=== PATIENT | female | born 1975 | race African-American/Black ===

== ENCOUNTER → 2018-07-27 | Day surgery (SDC) | payer BC ==
--- NOTE | 2018-07-26 16:17 | Diagnostic Imaging Report ---
Frontal and lateral views of the chest. HISTORY: Ureteral stricture, preadmission, cystostomy with urethral dilation COMPARISON: None available DISCUSSION: Lungs: The lungs are well inflated. No evidence of a consolidative pneumonia or pulmonary alveolar edema. Pleura: No pleural effusion or pneumothorax. Heart and mediastinum: The cardiomediastinal silhouette appears unremarkable. Bones: No acute osseous lesion. IMPRESSION: No acute radiographic abnormality. Signed by: Dr. Jacky Jo D.O., M.M.M. on 07/26/2018 4:14 PM
[~2018-07-27] MED LIST: ATARAX PO; ATIVAN0.5 MG PO; BACTROBAN15 G1; BENADRYL25 M1 PO; BENTYL10 MG/1 ML PO; BIOTIN1 MG PO; CEFOXITIN SOD 1 GM VIAL ONE; CYMBALTA30 MG PO; DEXAMETHASONE SOD PHOS INJ 4 MG/ML VIAL ONE; DIPHENHYDRAMINE HCL INJ 50 MG/ML VIAL ONE; ELAVIL PO; FENTANYL CITRATE/PF 100MCG/2 ML INJ ONE; IBUPROFEN200 MG PO; INDERAL LA60 MG PO; IOPAMIDOL 300MG/ML 50ML INFUS..BTL IV ONE; KETAMINE HCL INJ 50 MG/ML 10 ML VIAL ONE; LIDOCAINE HCL 2% LOCAL INJ 5 ML SDV VIAL INJ ONE; LYRICA50 MG PO; MACROBID 100 M100 MG PO; METOCLOPRAMIDE HCL 10 MG/2ML VIAL ONE; MIDAZOLAM HCL 2 MG/2 ML VIAL ONE; ONDANSETRON HCL INJ 2 MG/ML VIAL ONE; PAROXETINE HCL20 MG PO; PHENERGAN PO; PROMETHAZINE12.5 M1 PO; PROPOFOL IV EMULSION 10 MG/ML 20 ML VIAL ONE; SEVOFLURANE INHAL SOLN 250 ML PEN BTL ONE; STADOL; TINDAMAX500 MG PO; TOPAMAX25 MG PO; VALTREX500 MG PO; ZOFRAN4 MG PO; ZOMIG5 M1
[2018-07-27 08:36] LABS: BASOPHILS % 0.6 % (0.0-1.0); EOSINOPHILS # (AUTO) 0.2 (0.0-0.4); EOSINOPHILS % 4.9 % (0.0-6.0); HEMOGLOBIN 14.3 g/dL (12.0-16.0); LYMPHOCYTES # (AUTO) 1.7 (1.0-3.2); LYMPHOCYTES % 47.4 % (18.0-39.1); MEAN CORPUSCULAR HEMOGLOBIN 35.2 pg (28-32); MEAN CORPUSCULAR HGB CONC 33.3 g/dL (31-35); MEAN CORPUSCULAR VOLUME 105.9 fL (81-99); MONOCYTES # (AUTO) 0.2 (0.2-0.8); MONOCYTES % 6.6 % (4.4-11.3); NEUTROPHILS # (AUTO) 1.4 (2.1-6.9); NEUTROPHILS % 40.2 % (38.7-80.0); PLATELET COUNT 223 x10e3/uL (140-360); RED BLOOD COUNT 4.06 x10e6/uL (3.6-5.1); RED CELL DISTRIBUTION WIDTH 12.9 % (11.7-14.4)
[2018-07-27 08:48] LABS: INR 1.02; PROTHROMBIN TIME 12.6 seconds (11.9-14.5)
[2018-07-27 08:54] LABS: ANION GAP 12.1 mmol/L (8-16); BLOOD UREA NITROGEN 6 mg/dL (7-26); BUN/CREATININE RATIO 6 (6-25); CALCIUM 9.4 mg/dL (8.4-10.2); CARBON DIOXIDE 25 mmol/L (22-29); CHLORIDE 109 mmol/L (98-107); CREATININE, SERUM 0.94 mg/dL (0.57-1.11); EST GLOMERULAR FILTRATION RATE > 60 ML/MIN (60-); GLUCOSE 86 mg/dL (74-118); POTASSIUM 4.1 mmol/L (3.5-5.1); SODIUM 142 mmol/L (136-145)
--- NOTE | 2018-07-27 11:52 | Operative Report ---
DATE OF PROCEDURE: July 27, 2018 PREOPERATIVE DIAGNOSIS: Urethral stricture. POSTOPERATIVE DIAGNOSIS: Urethral stricture. OPERATIONS PERFORMED: Cystoscopy and dilation of urethral stricture. ANESTHESIA: General. INDICATIONS: This patient is a 43-year-old black female with a long history of urethral stricture disease. She also has a T-cell lymphoma. The patient saw me because she was having severe troubles initiating her urinary stream and problems emptying her bladder. For further details, please refer to the history and physical. Procedure was done in the following fashion. DESCRIPTION OF PROCEDURE: The patient was taken to the operating room and placed under general anesthesia, dressed, and draped with Hibiclens in lithotomy position in usual fashion. The urethral meatus and urethra were initially so tight that it would not accept the 22-English Olympus cystoscope; therefore, I had to dilate from 16-English to 32-English with female sounds. The dilation went very slowly because the stricture was tight. Once this was accomplished, I then inserted a 22-English Olympus cystoscope with the 30-degree oblique lens. Clear efflux was seen from both ureteral orifices. No bladder tumors or bladder stones were identified. There was very mild bladder trabeculation. The bladder was emptied and cystoscope withdrawn. The patient tolerated the procedure well and left the operating room in good condition. PLAN: My plan at this time is to send her home on Macrobid 1 p.o. twice daily, #20. She will have return appointment to see me again in 2 weeks. Job#: [id number] MAXI
[2018-07-27 12:20] VITALS: BP 101/75
== END | disposition home or self-care (01) ==
LOC: OR 07:18
PROVIDERS: ATTEND Urology
DX: N35.028 Other post-traumatic urethral stricture, female (principal); N32.89 Other specified disorders of bladder; C84.A0 Cutaneous T-cell lymphoma, unspecified, unspecified site; K64.4 Residual hemorrhoidal skin tags; G13.0 Paraneoplastic neuromyopathy and neuropathy; G43.909 Migraine, unspecified, not intractable, without status migrainosus; M79.7 Fibromyalgia; R00.1 Bradycardia, unspecified; K21.9 Gastro-esophageal reflux disease without esophagitis; F32.9 Major depressive disorder, single episode, unspecified; F41.9 Anxiety disorder, unspecified; F17.210 Nicotine dependence, cigarettes, uncomplicated; Z01.810 Encounter for preprocedural cardiovascular examination; Z01.818 Encounter for other preprocedural examination; Z88.6 Allergy status to analgesic agent; Z88.8 Allergy status to other drugs, medicaments and biological substances; Z68.38 Body mass index [BMI] 38.0-38.9, adult
CPT/HCPCS: 36415; 52281; 71046; 80048; 85025; 85610; 85730; 93005; J0694; J1100; J1200; J2001; J2250; J2405; J2765

== ENCOUNTER 2018-07-28 10:25 | Emergency (ER) | payer BC ==
[~2018-07-28] VITALS: Ht 170.2 cm; Wt 81.2 kg
[~2018-07-28 10:25] MED LIST changes: -CEFOXITIN SOD 1 GM VIAL ONE; -DEXAMETHASONE SOD PHOS INJ 4 MG/ML VIAL ONE; -DIPHENHYDRAMINE HCL INJ 50 MG/ML VIAL ONE; -FENTANYL CITRATE/PF 100MCG/2 ML INJ ONE; -IOPAMIDOL 300MG/ML 50ML INFUS..BTL IV ONE; -KETAMINE HCL INJ 50 MG/ML 10 ML VIAL ONE; -LIDOCAINE HCL 2% LOCAL INJ 5 ML SDV VIAL INJ ONE; -METOCLOPRAMIDE HCL 10 MG/2ML VIAL ONE; -MIDAZOLAM HCL 2 MG/2 ML VIAL ONE; -ONDANSETRON HCL INJ 2 MG/ML VIAL ONE; -PROMETHAZINE12.5 M1 PO; -PROPOFOL IV EMULSION 10 MG/ML 20 ML VIAL ONE; -SEVOFLURANE INHAL SOLN 250 ML PEN BTL ONE
[2018-07-28] MEDS ORDERED: ONDANSETRON HCL INJ 2 MG/ML VIAL IV STA (11:10)
[2018-07-28] MEDS ORDERED: MORPHINE SULFATE INJ 4 MG/ML INJ IV NR (11:30)
[2018-07-28 11:34] LABS: BASOPHILS % 0.4 % (0.0-1.0); EOSINOPHILS # (AUTO) 0.1 (0.0-0.4); EOSINOPHILS % 2.3 % (0.0-6.0); HEMOGLOBIN 12.3 g/dL (12.0-16.0); LYMPHOCYTES # (AUTO) 2.6 (1.0-3.2); MEAN CORPUSCULAR HEMOGLOBIN 35.5 pg (28-32); MEAN CORPUSCULAR HGB CONC 33.2 g/dL (31-35); MEAN CORPUSCULAR VOLUME 106.9 fL (81-99); MONOCYTES # (AUTO) 0.4 (0.2-0.8); MONOCYTES % 6.7 % (4.4-11.3); NEUTROPHILS # (AUTO) 2.2 (2.1-6.9); NEUTROPHILS % 41.4 % (38.7-80.0); PLATELET COUNT 196 x10e3/uL (140-360); RED BLOOD COUNT 3.46 x10e6/uL (3.6-5.1)
[2018-07-28 11:45] LABS: INR 1.08; PROTHROMBIN TIME 13.2 seconds (11.9-14.5)
[2018-07-28 11:46] LABS: PARTIAL THROMBOPLASTIN TIME 25.7 seconds (23.8-35.5)
[2018-07-28 11:52] LABS: ANION GAP 9.3 mmol/L (8-16); BLOOD UREA NITROGEN 6 mg/dL (7-26); BUN/CREATININE RATIO 6 (6-25); CALCIUM 8.7 mg/dL (8.4-10.2); CARBON DIOXIDE 24 mmol/L (22-29); CHLORIDE 110 mmol/L (98-107); CREATININE, SERUM 1.06 mg/dL (0.57-1.11); EST GLOMERULAR FILTRATION RATE > 60 ML/MIN (60-); GLUCOSE 79 mg/dL (74-118); POTASSIUM 3.3 mmol/L (3.5-5.1); SODIUM 140 mmol/L (136-145)
[2018-07-28] MEDS ORDERED: LIDOCAINE JELLY 2% 10ML URO-JET TOP ONE ×2 (12:45→14:00)
[2018-07-28] MEDS ORDERED: POTASSIUM CHLORIDE 20 MEQ TAB CR PO STA (13:23)
[2018-07-28] MEDS ORDERED: FENTANYL CITRATE/PF 100MCG/2 ML INJ IV ONE (14:15)
[2018-07-28] MEDS ORDERED: PROMETHAZINE 12.5MG/ NACL 0.9% 12.5 MG/50 ML BAG IV ONE (14:45)
[2018-07-28 15:32] LABS: BILIRUBIN,URINE NEGATIVE (NEGATIVE); CLARITY,URINE CLEAR (CLEAR); COLOR,URINE YELLOW (YELLOW); KETONES,URINE NEGATIVE (NEGATIVE); LEUKOCYTE ESTERASE ,URINE 1+ (NEGATIVE); NITRITE,URINE NEGATIVE (NEGATIVE); PROTEIN,URINE DIPSTICK NEGATIVE (NEGATIVE); URINE UROBILINOGEN 0.2 mg/dL (0.2 - 1)
[2018-07-28 15:47] LABS: BACTERIA,URINE FEW /HPF; EPITHELIAL CELLS,URINE FEW /LPF; RBC,URINE 21-50 /HPF (0-5)
[2018-07-28] MEDS ORDERED: PROMETHAZINE12.5 M1 PO (16:29)
--- OUTSIDE RECORDS SUMMARY | 2018-08-23 06:46 | XMS REPORT | Clinical Summary ---
Author Author [employer] Organization [employer] Address Unknown Phone Unavailable Care Team Providers Care Reservations Manager Name Role Phone Joi Almodovar PCP Allergies Active Allergy Reactions Severity Noted Date Comments Aspirin 08/17/2016 Hydromorphone (Bulk) Hives 04/12/2017 Current Medications Prescription Sig. Disp. Refills Start End Date Status Date diphenhydrAMINE Take 25 mg by mouth Active (BENADRYL) 25 mg tablet nightly as needed for sleep. ibuprofen (ADVIL,MOTRIN) Take 200 mg by mouth Active 200 MG tablet every 6 (six) hours as needed for mild pain. biotin 1 mg capsule Take by mouth. Active ascorbic acid, vitamin C, Take 1,000 mg by mouth Active (vitamin C) 1000 MG daily. tablet propranolol (INDERAL) 20 Take 20 mg by mouth 4 Active MG tablet (four) times a day. topiramate (TOPAMAX) 100 Take 100 mg by mouth 2 Active MG tablet (two) times a day. amitriptyline (ELAVIL) 25 Take 25 mg by mouth 2 Active MG tablet (two) times a day. PARoxetine mesylate 7.5 Take 7.5 mg by mouth Active mg capsule daily. LORAZepam (ATIVAN) 1 MG Take 1 mg by mouth 2 Active tablet (two) times a day. valACYclovir (VALTREX) Take 1,000 mg by mouth Active 1000 MG tablet daily. promethazine (PHENERGAN) Take 25 mg by mouth every Active 25 MG tablet 6 (six) hours as needed for nausea or vomiting. butorphanol (STADOL) 10 1 spray into each nostril Active mg/mL nasal spray every 6 (six) hours as needed for moderate pain. dicyclomine (BENTYL) 20 Take 20 mg by mouth every Active mg tablet 6 (six) hours. ketoprofen 5% and Apply topically as Active lidocaine 5% 5%-5% cream needed. ondansetron (ZOFRAN) 4 MG 12/26/19 Active tablet 18 hydrOXYzine (ATARAX) 50 11/15/20 Active MG tablet 17 mupirocin (BACTROBAN) 2 % 12/27/19 Active ointment 18 tinidazole (TINDAMAX) 500 12/27/19 Active MG tablet 18 ZOMIG 5 mg nasal solution 12/27/19 Active 18 pregabalin (LYRICA) 50 MG Take 50 mg by mouth 3 Active capsule (three) times a day. DULoxetine (CYMBALTA) 30 Take 30 mg by mouth Active MG capsule daily. multivitamin with Take 1 tablet by mouth 08/21/20 Discontin minerals tablet daily. 18 ued VITAMIN E, DL,TOCOPHERYL Take by mouth daily. 01/23/20 Discontin ACET, (VITAMIN E, DL, 18 ued ACETATE,) 400 unit capsule cyanocobalamin (vitamin Take 100 mcg by mouth 08/21/20 Discontin B-12) 100 MCG tablet daily. 18 ued polycarbophil (FIBER, Take 625 mg by mouth 01/23/20 Discontin CALCIUM POLYCARBOPHIL,) daily. 18 ued 625 mg tablet black cohosh 20 mg tablet Take by mouth. 01/11/20 Discontin 18 ued sodium,potassium,mag Please use as directed 2 Bottle 0 08/17/20 Discontin sulfates (SUPREP BOWEL 16 18 ued PREP KIT) 17.5-3.13-1.6 gram recon solnIndications: Other constipation keTOROlac (TORadol) 10 mg Take 10 mg by mouth every 01/23/20 Discontin tablet 6 (six) hours as needed 18 ued for moderate pain. sodium,potassium,mag Please use as directed 354 mL 0 01/11/20 Discontin sulfates (SUPREP BOWEL 18 18 ued PREP KIT) 17.5-3.13-1.6 gram recon soln traMADol (ULTRAM) 50 mg Take 1 tablet (50 mg 20 tablet 0 01/27/20 tablet total) by mouth every 6 18 18 (six) hours as needed for moderate pain for up to 5 days. Active Problems Problem Noted Date Bladder neck contracture 08/21/2018 Lower urinary tract symptoms 08/21/2018 Diarrhea 01/04/2018 Nausea and vomiting 01/04/2018 Abdominal pain 01/04/2018 Dehydration 01/04/2018 Constipation 08/17/2016 Dyspepsia 08/17/2016 Encounters Date Type Specialty Care Team Description 08/22/2018 Yue Villalobos MD Abnormal mammogram Orders (Primary Dx) 08/21/2018 Office Visit Urology Leonora Matamoros MD Lower urinary tract symptoms (Primary Dx); Bladder neck contracture 08/21/2018 Hospital Radiology Yue Cardona MD Screening breast Encounter examination 08/21/2018 Transcribe Yue Graves MD Screening breast Orders examination (Primary Dx) 02/12/2018 Office Visit General Surgery Eleni Browning MD Calculus of gallbladder with chronic cholecystitis without obstruction (Primary Dx) 01/25/2018 [facility] General Surgery Eleni Browning MD Preop testing; Encounter Calculus of gallbladder with chronic cholecystitis without obstruction 01/25/2018 Telephone Urology Jeannette Bonilla MA 01/25/2018 Procedure Pass General Surgery 01/25/2018 Surgery General Surgery Eleni Browning MD Laparoscopic Cholecystectomy With Cholangiography 01/24/2018 Anesthesia General Surgery Amos Jiménez MD 01/22/2018 Pre-Admit Pre-Admission Testing Eleni Browning MD Preop testing (Primary Testing Dx) Appointment 01/18/2018 Telephone General Surgery Luna Rivera RN 01/17/2018 Office Visit General Surgery Eleni Browning MD Calculus of gallbladder with chronic cholecystitis without obstruction (Primary Dx) 01/16/2018 Hospital Gastroenterology Jose Dodd MD Diarrhea; Encounter Abdominal pain; Dyspepsia 01/16/2018 Hospital Radiology Jose Dodd MD Abdominal pain, Encounter unspecified abdominal location; Intractable vomiting with nausea, unspecified vomiting type 01/16/2018 Orders Only Gastroenterology Jose Dodd MD Calculus of gallbladder without cholecystitis without obstruction (Primary Dx); Nausea and vomiting, intractability of vomiting not specified, unspecified vomiting type 01/16/2018 Anesthesia Gastroenterology Terry Burns Event MD 01/16/2018 Procedure Pass Gastroenterology 01/16/2018 Surgery Gastroenterology Jose Dodd MD ESOPHAGOGASTRODUODENOSCOP Y (EGD) with bx 01/11/2018 Office Visit Gastroenterology Jose Dodd MD Diarrhea, unspecified type (Primary Dx); Abdominal pain, unspecified abdominal location; Dyspepsia; Intractable vomiting with nausea, unspecified vomiting type; Dehydration 01/05/2018 Telephone Gastroenterology Maddy Blanchard MA 01/04/2018 Emergency Emergency Medicine Sanjeev France Lower abdominal pain (Primary Dx); Nausea and vomiting, intractability of vomiting not specified, unspecified vomiting type 01/04/2018 Office Visit Gastroenterology Jose Dodd MD Diarrhea, unspecified type (Primary Dx); Nausea and vomiting, intractability of vomiting not specified, unspecified vomiting type; Abdominal pain, unspecified abdominal location; Dehydration 08/17/2017 Hospital Radiology Yue Cardona MD Visit for screening Encounter mammogram 08/15/2017 Transcribe Access Yue Cardona MD Visit for screening Orders mammogram (Primary Dx) after 07/27/2017 Family History Medical History Relation Name Comments No Known Problems Brother Diabetes Father Hypertension Father Stomach cancer Father Bone cancer Paternal Grandfather Lung cancer Paternal Grandmother No Known Problems Sister Relation Name Status Comments Brother Alive Father Alive Maternal Grandfather Maternal Grandmother Mother Alive Paternal Grandfather Paternal Grandmother Sister Alive Social History Tobacco Use Types Packs/Day Years Used Date Former Smoker Cigarettes, Electronic 5 Cigarettes Smokeless Tobacco: Never Used Tobacco Cessation: Ready to Quit: Yes Comments: 5 cigg per day Alcohol Use Drinks/Week oz/Week Comments Yes 6 Cans of 3.6 per month beer Sex Assigned at Date Recorded Not on file Last Filed Vital Signs Vital Sign Reading Time Taken Blood Pressure 119/80 08/21/2018 2:26 PM CDT Pulse 81 08/21/2018 2:26 PM CDT Temperature 36.6 C (97.8 F) 08/21/2018 2:26 PM CDT Respiratory Rate 16 01/25/2018 2:23 PM SIFTER OPERATOR Oxygen Saturation 99% 01/25/2018 2:23 PM SIFTER OPERATOR Inhaled Oxygen - - Concentration Weight 85.5 kg (188 lb 9.6 oz) 08/21/2018 2:26 PM CDT Height 171.5 cm (5' 7.5") 08/21/2018 2:26 PM CDT Body Mass Index 29.1 08/21/2018 2:26 PM CDT Plan of Treatment Date Type Specialty Care Team Description 09/07/2018 Appointment Radiology Yue Cardona MD [address] [place] [address] 09/07/2018 Appointment Radiology Yue Cardona MD [address] [place], [place] [id number] Health Maintenance Due Date Last Done Comments CERVICAL CANCER SCREENING 1995 INFLUENZA VACCINE 06/20/2018 Procedures Procedure Name Priority Date/Time Associated Diagnosis Comments BLADDER SCAN Routine 08/21/2018 Bladder neck contracture Results for this 3:26 PM CDT Lower urinary tract procedure are in the symptoms results section. MAMMO SCREENING W CAD Routine 08/21/2018 Screening breast Results for this BILATERAL 12:24 PM CDT examination procedure are in the results section. SURGICAL PATHOLOGY Routine 01/25/2018 Results for this REQUEST 1:23 PM SIFTER OPERATOR procedure are in the results section. OH AN ELECTIVE Routine 01/25/2018 ENDOTRACHEAL AIRWAY 12:18 PM SIFTER OPERATOR Procedure Note - Ashly Voss, CHIEF SPECIALIST LEED - 01/25/2018 12:18 PM SIFTER OPERATOR Airway Date/Time: 01/25/2018 11:19 AM Performed by: ASHLY VOSS Authorized by: AMOS JIMÉNEZ Location: PACU Urgency: Elective Difficult Airway: No Resident/C RNA/AA: ASHLY VOSS Preoxygena dario with 100% O2: Yes C-spine Precaution s Maintained Throughout : Yes Mask Ventilatio n: Easy mask Final Airway Type: Endotrache al airway Final Endotrache al Airway: ETT Cuffed: Yes Technique Used: Direct laryngosco py Insertion Site: Oral Blade Type: Rita Laryngosco pe Blade/Vide olaryngosc ope Blade Size: 3 ETT Size (mm): 7.0 Cuff at minimum occlusion pressure: Yes Measured from: Lips ETT to Lips (cm): 22 Placement Verified by: CO2 detection, direct visualizat ion and equal breath sounds Laryngosco pic view: Grade I - full view of glottis FL CHOLANGIOGRAM Routine 01/25/2018 Results for this INTRAOPERATIVE 12:07 PM SIFTER OPERATOR procedure are in the results section. ECG PRE/POST OP Routine 01/22/2018 Preop testing Results for this 5:40 PM SIFTER OPERATOR procedure are in the results section. ZZESTIMATED GFR Routine 01/22/2018 Results for this 4:59 PM SIFTER OPERATOR procedure are in the results section. HCG QUALITATIVE, URINE Routine 01/22/2018 Preop testing Results for this SCREEN 4:59 PM SIFTER OPERATOR procedure are in the results section. COMPREHENSIVE METABOLIC Routine 01/22/2018 Preop testing Results for this PANEL 4:59 PM SIFTER OPERATOR procedure are in the results section. HC COMPLETE BLD COUNT Routine 01/22/2018 Preop testing Results for this W/AUTO DIFF 4:59 PM SIFTER OPERATOR procedure are in the results section. SURGICAL PATHOLOGY Routine 01/16/2018 Results for this REQUEST 10:28 AM SIFTER OPERATOR procedure are in the results section. COLONOSCOPY 01/16/2018 Diarrhea 10:00 AM SIFTER OPERATOR ESOPHAGOGASTRODUODENOSCOP 01/16/2018 Diarrhea Y (EGD) 10:00 AM SIFTER OPERATOR US ABDOMEN COMPLETE Routine 01/16/2018 Abdominal pain, Results for this 8:37 AM SIFTER OPERATOR unspecified abdominal procedure are in the location results section. Intractable vomiting with nausea, unspecified vomiting type CT ABDOMEN PELVIS W STAT 01/04/2018 Results for this CONTRAST 8:11 PM SIFTER OPERATOR procedure are in the results section. ZZESTIMATED GFR STAT 01/04/2018 Results for this 5:15 PM SIFTER OPERATOR procedure are in the results section. HC COMPLETE BLD COUNT STAT 01/04/2018 Results for this W/AUTO DIFF 5:15 PM SIFTER OPERATOR procedure are in the results section. LIPASE LEVEL STAT 01/04/2018 Results for this 5:15 PM SIFTER OPERATOR procedure are in the results section. COMPREHENSIVE METABOLIC STAT 01/04/2018 Results for this PANEL 5:15 PM SIFTER OPERATOR procedure are in the results section. HCG QUALITATIVE, URINE STAT 01/04/2018 Results for this SCREEN 4:52 PM SIFTER OPERATOR procedure are in the results section. URINALYSIS SCREEN AND STAT 01/04/2018 Results for this MICROSCOPY, WITH REFLEX 4:52 PM SIFTER OPERATOR procedure are in the TO CULTURE results section. MAMMO SCREENING W CAD Routine 08/17/2017 Visit for screening Results for this BILATERAL 7:58 AM CDT mammogram procedure are in the results section. after 07/27/2017 Results * Bladder scan (08/21/2018 3:26 PM) Impressions Performed At 0ml * Mammo Screening w Cad Bilateral (08/21/2018 12:24 PM) Only the most recent of 2 results within the time period is included. Narrative Performed At PROCEDURE: MAMMO SCREENING W CAD BILATERAL [facility] Computer aided detection was utilized for the interpretation of the bilateral digital screening mammogram. COMPARISON EXAMS: [id number] DENSITY: The breast tissue is heterogeneously dense, which may obscure small masses. FINDINGS: No suspicious finding is seen in the right breast. There is an asymmetry in the left central breast on the MLO view. IMPRESSION: Left breast asymmetry. Additional imaging evaluation is recommended with left breast diagnostic mammogram and ultrasound exam. BI-RADS 0: INCOMPLETE - Need Additional Imaging Evaluation This facility is accredited by the [employer] for Mammography. A negative x-ray report should not delay biopsy if a dominant or clinically suspicious mass is present. Not all cancers are identified by x-ray. [id number] Performing Organization Address City/State/Zipcode Phone Number [facility] [address] [place] [address] * Surgical pathology request (01/25/2018 1:23 PM) Only the most recent of 2 results within the time period is included. [facility] DEPARTMENT OF PATHOLOGY AND GENOMIC MEDICINE Surgical pathology report See link below for PDF Lab [facility] DEPARTMENT OF Report PATHOLOGY AND GENOMIC MEDICINE Result status This is Final Report to [facility] DEPARTMENT OF [id number] PATHOLOGY AND GENOMIC MEDICINE Performing Organization Address City/[facility]/Zipcode Phone Number [facility] DEPARTMENT OF [address] [place] [phone] PATHOLOGY AND GENOMIC MEDICINE * [place] Cholangiogram Intraoperative (01/25/2018 12:07 PM) Narrative Performed At EXAMINATION: [place] CHOLANGIOGRAM INTRAOPERATIVE [facility] CLINICAL HISTORY: COMPARISON: None. TECHNIQUE: Intraoperative cholangiogram was performed. No radiologist present. Spot radiographs were made available for evaluation. FLUOROSCOPIC TIME: 18 seconds. 2 spot films. 80 KVP. 2.2 MA. [id number] milliGreys squared IMPRESSION: 1. See procedure report for more complete details. 2. There is mild dilatation of the common bile duct with contrast spilling into the duodenum and no signs of a retained calculus. [id number] Procedure Note Hm Interface, Radiology Results Incoming - 01/25/2018 3:23 PM SIFTER OPERATOR EXAMINATION: [place] CHOLANGIOGRAM INTRAOPERATIVE CLINICAL HISTORY: COMPARISON: None. TECHNIQUE: Intraoperative cholangiogram was performed. No radiologist present. Spot radiographs were made available for evaluation. FLUOROSCOPIC TIME: 18 seconds. 2 spot films. 80 KVP. 2.2 MA. 0.81025 milliGreys squared IMPRESSION: 1. See procedure report for more complete details. 2. There is mild dilatation of the common bile duct with contrast spilling into the duodenum and no signs of a retained calculus. [id number] Performing Organization Address [facility] Phone Number [facility] [address] [place] [address] * ECG Pre/Post Op (01/22/2018 5:40 PM) Ventricular rate 62 [facility] Atrial rate 62 [facility] OH interval 182 [facility] QRSD interval 82 [facility] QT interval 420 [facility] QTC interval 426 [facility] P axis 1 66 [facility] QRS axis 1 28 [facility] T wave axis 53 [facility] EKG impression Normal sinus [facility] MUSE rhythm-Nonspecific T wave abnormality-Abnormal ECG-No previous ECGs available- Performing Organization Address [facility] Phone Number [employer] [facility] [address] [place] [address] * Estimated GFR (01/22/2018 4:59 PM) Only the most recent of 2 results within the time period is included. GFR Non Af Amer 68 mL/min/1.73 m2 [facility] DEPARTMENT OF PATHOLOGY AND GENOMIC MEDICINE GFR Af Amer 83 mL/min/1.73 m2 [facility] DEPARTMENT OF Comment: PATHOLOGY AND Chronic kidney disease: <60 GENOMIC MEDICINE mL/min/1.73m2 Kidney failure: <15 mL/min/1.73m2 The estimated GFR is calculated from the IDMS-traceable Modification of Diet in Renal Disease Equation. The accuracy of the calculation is poor when the creatinine is normal. Calculated values >90 mL/min/1.73m2 are not reported. This equation has not been validated in children (<18 years), women, the elderly (>70 years), or ethnic groups other than Caucasians and Americans. Specimen Plasma specimen Performing Organization Address City/State/Zipcode Phone Number [address] [place] [address] PATHOLOGY AND [employer] [facility]ICINE * hCG qualitative, urine screen (01/22/2018 4:59 PM) Only the most recent of 2 results within the time period is included. hCG qualitative, urine Negative Negative [facility] DEPARTMENT OF Comment: PATHOLOGY AND The manufacturers stated GENOMIC MEDICINE sensitivity of HcG test for serum is >/=10 mIU/ml and urine is >/=20mIU/ml. Specimen Urine Performing Organization Address City/[facility]/Zipcode Phone Number [address] [place] [address] PATHOLOGY AND [employer] MEDICINE * CBC with platelet and differential (01/22/2018 4:59 PM) Only the most recent of 2 results within the time period is included. WBC 4.4 4.2 - 11.0 k/uL [facility] PATHOLOGY AND GENOMIC MEDICINE RBC 3.73 (L) 4.04 - 5.86 m/uL [facility] PATHOLOGY AND GENOMIC MEDICINE HGB 13.1 11.5 - 15.3 g/dL [facility] PATHOLOGY AND GENOMIC MEDICINE HCT 38.7 34.0 - 45.0 % [facility] DEPARTMENT PATHOLOGY AND GENOMIC MEDICINE MCV 103.8 (H) 80.0 - 98.0 fL [facility] DEPARTMENT OF PATHOLOGY AND GENOMIC MEDICINE MCH 35.1 (H) 27.0 - 34.0 pg [facility] DEPARTMENT OF PATHOLOGY AND GENOMIC MEDICINE MCHC 33.9 31.5 - 36.5 g/dL [facility] DEPARTMENT PATHOLOGY AND GENOMIC MEDICINE RDW - SD 46.8 37.0 - 51.0 fL [facility] PATHOLOGY AND GENOMIC MEDICINE MPV 10.2 7.4 - 10.4 fL [facility] PATHOLOGY AND GENOMIC MEDICINE Platelet count 277 150 - 400 k/uL [facility] PATHOLOGY AND GENOMIC MEDICINE Nucleated RBC 0.00 /100 WBC [facility] DEPARTMENT OF PATHOLOGY AND GENOMIC MEDICINE Neutrophils 21.0 (L) 36.0 - 66.0 % [facility] DEPARTMENT OF PATHOLOGY AND GENOMIC MEDICINE Lymphocytes 67.6 (H) 24.0 - 44.0 % [facility] OF PATHOLOGY AND GENOMIC MEDICINE Monocytes 4.8 0.0 - 6.0 % [facility] DEPARTMENT OF PATHOLOGY AND GENOMIC MEDICINE Eosinophils 5.7 0.0 - 6.0 % [facility] DEPARTMENT OF PATHOLOGY AND GENOMIC MEDICINE Basophils 0.9 0.0 - 1.2 % [facility] DEPARTMENT OF PATHOLOGY AND GENOMIC MEDICINE Immature granulocytes 0.0 0.0 - 1.0 % [facility] DEPARTMENT OF PATHOLOGY AND GENOMIC MEDICINE Specimen Blood Performing Organization Address City/[facility]/Zipcode Phone Number [place] [address] [place] [address] PATHOLOGY AND GENOMIC MEDICINE * Comprehensive metabolic panel (01/22/2018 4:59 PM) Only the most recent of 2 results within the time period is included. Sodium 139 135 - 150 mEq/L [facility] DEPARTMENT OF PATHOLOGY AND GENOMIC MEDICINE Potassium 3.5 3.5 - 5.0 mEq/L [facility] DEPARTMENT OF PATHOLOGY AND GENOMIC MEDICINE Chloride 108 100 - 109 mEq/L [facility] DEPARTMENT OF PATHOLOGY AND GENOMIC MEDICINE CO2 25 24 - 32 mmol/L [facility] DEPARTMENT OF PATHOLOGY AND GENOMIC MEDICINE Anion gap 6 (L) 7 - 15 mEq/L [facility] DEPARTMENT OF Comment: PATHOLOGY AND Starting from February [facility] , anion gap calculation no longer incorporates potassium. Please note the change. BUN 7 7 - 18 mg/dL [facility] DEPARTMENT OF PATHOLOGY AND GENOMIC MEDICINE Creatinine 0.9 0.8 - 1.5 mg/dL [facility] DEPARTMENT OF PATHOLOGY AND GENOMIC MEDICINE Glucose 81 65 - 100 mg/dL [facility] DEPARTMENT OF PATHOLOGY AND GENOMIC MEDICINE Calcium 8.9 8.6 - 10.7 mg/dL [facility] DEPARTMENT OF PATHOLOGY AND GENOMIC MEDICINE Protein 7.3 6.3 - 8.2 g/dL [facility] DEPARTMENT OF PATHOLOGY AND GENOMIC MEDICINE Albumin 3.7 3.2 - 5.0 g/dL [facility] DEPARTMENT OF PATHOLOGY AND GENOMIC MEDICINE A/G ratio 1.0 0.7 - 3.8 [facility] DEPARTMENT OF PATHOLOGY AND GENOMIC MEDICINE Alkaline phosphatase 66 30 - 120 U/L [facility] DEPARTMENT OF PATHOLOGY AND GENOMIC MEDICINE AST 15 15 - 37 U/L [facility] DEPARTMENT OF PATHOLOGY AND GENOMIC MEDICINE ALT 10 (L) 30 - 65 U/L [facility] DEPARTMENT OF PATHOLOGY AND GENOMIC MEDICINE Total bilirubin 0.5 0.2 - 1.2 mg/dL [facility] DEPARTMENT OF PATHOLOGY AND GENOMIC MEDICINE Specimen Plasma specimen Performing Organization Address City/State/Zipcode Phone Number [place] [address] [place] [address] PATHOLOGY AND GENOMIC MEDICINE * US Abdomen Complete (01/16/2018 8:37 AM) Narrative Performed At PROCEDURE: US ABDOMEN COMPLETE [facility] CLINICAL HISTORY: R10.9 Unspecified abdominal pain, R11.2 Nausea with vomiting unspecified, abdominal pain n v COMPARISON: None. TECHNIQUE: Multiple echo tomograms were performed in the sagittal and transverse orientations of the intra-abdominal solid organs. Color-flow and pulse wave Doppler were also performed of the portal vein, IVC, and aorta. FINDINGS: The liver echotexture is homogeneous. The liver measures approximately 17.4 cm length. Doppler evaluation of the portal vein demonstrates hepatopedal flow. The maximal transverse diameter of the portal vein is 10.8 mm . No dilatation of the biliary tree is seen. The common bile duct measures 0.30 cm in maximal transverse diameter. The gallbladder demonstrates multiple tiny calculi layering dependently. No wall thickening, pericholecystic fluid or positive sonographic Jacob's sign is elicited. The head and body of the pancreas is unremarkable. The tail is normally not visualized on this type of examination. No abnormality of the kidneys is seen. The right kidney measures 11.24 cm length and the left kidney measures 10.27 cm length. The splenic echotexture is homogeneous. The spleen is not enlarged and measures 9.76 cm length by 3.1 cm transverse at the hilum. No evidence of ectasia or aneurysm is noted of the visualized upper abdominal aorta. The maximal transverse diameter of the upper abdominal aorta is 1.8 cm . No abnormality of the intrahepatic portion of the inferior vena cava is noted. IMPRESSION: Abnormal study. Cholelithiasis without sonographic evidence of acute cholecystitis. The tail of the pancreas is normally not visualized on this type of examination. The remainder of examination is unremarkable. [facility]-[id number] Procedure Note Interface, Radiology Results Incoming - 01/16/2018 8:46 AM SIFTER OPERATOR PROCEDURE: US ABDOMEN COMPLETE CLINICAL HISTORY: R10.9 Unspecified abdominal pain, R11.2 Nausea with vomiting unspecified, abdominal pain n v COMPARISON: None. TECHNIQUE: Multiple echo tomograms were performed in the sagittal and transverse orientations of the intra-abdominal solid organs. Color-flow and pulse wave Doppler were also performed of the portal vein, IVC, and aorta. FINDINGS: The liver echotexture is homogeneous. The liver measures approximately 17.4 cm length. Doppler evaluation of the portal vein demonstrates hepatopedal flow. The maximal transverse diameter of the portal vein is 10.8 mm . No dilatation of the biliary tree is seen. The common bile duct measures 0.30 cm in maximal transverse diameter. The gallbladder demonstrates multiple tiny calculi layering dependently. No wall thickening, pericholecystic fluid or positive sonographic Jacob's sign is elicited. The head and body of the pancreas is unremarkable. The tail is normally not visualized on this type of examination. No abnormality of the kidneys is seen. The right kidney measures 11.24 cm length and the left kidney measures 10.27 cm length. The splenic echotexture is homogeneous. The spleen is not enlarged and measures 9.76 cm length by 3.1 cm transverse at the hilum. No evidence of ectasia or aneurysm is noted of the visualized upper abdominal aorta. The maximal transverse diameter of the upper abdominal aorta is 1.8 cm . No abnormality of the intrahepatic portion of the inferior vena cava is noted. IMPRESSION: Abnormal study. Cholelithiasis without sonographic evidence of acute cholecystitis. The tail of the pancreas is normally not visualized on this type of examination. The remainder of examination is unremarkable. [facility]-[id number] Performing Organization Address City/State/Zipcode Phone Number [facility] [address] [place] [address] * CT Abdomen Pelvis W Contrast (01/04/2018 8:11 PM) Narrative Performed At EXAMINATION: CT A[facility]OMEN [facility]EL[facility] CLINICAL HISTORY: abdominal pain TECHNIQUE: Multiple axial images of the abdomen and pelvis were obtained following intravenous administration of iodinated contrast. Sagittal and coronal computerized reformatted images were also obtained. Radiation dose reduction technique was utilized. COMPARISON: None. IMPRESSION: Abdomen: 1. There are postoperative changes involving the stomach. 2. Liver, spleen, pancreas, adrenals, and kidneys are normal. 3. There is no retroperitoneal adenopathy. 4. There is no intestinal obstruction. Pelvis: 1. Status post appendectomy and hysterectomy. 2. There is a small amount of free fluid in the cul-de-sac. 3. There is no pelvic mass or adenopathy. [facility]-[id number] Procedure Note Interface, Radiology Results Incoming - 01/04/2018 8:19 PM [facility]IF[facility] OPERATOR EXAMINATION: CT ABDOMEN PELVIS W CONTRAST CLINICAL HISTORY: abdominal pain TECHNIQUE: Multiple axial images of the abdomen and pelvis were obtained following intravenous administration of iodinated contrast. Sagittal and coronal computerized reformatted images were also obtained. Radiation dose reduction technique was utilized. COMPARISON: None. IMPRESSION: Abdomen: 1. There are postoperative changes involving the stomach. 2. Liver, spleen, pancreas, adrenals, and kidneys are normal. 3. There is no retroperitoneal adenopathy. 4. There is no intestinal obstruction. Pelvis: 1. Status post appendectomy and hysterectomy. 2. There is a small amount of free fluid in the cul-de-sac. 3. There is no pelvic mass or adenopathy. [facility]-[id number] Performing Organization Address City/[facility]/Zipcode Phone Number [facility] [address] [place] [address] * Lipase level (01/04/2018 5:15 PM) Lipase 188 65 - 230 U/L [facility] [place] [facility]PART[facility] OF [facility]OLOGY AND GENOMIC MEDICINE Specimen Plasma specimen Performing Organization Address City/[facility]/Zipcode Phone Number [address] [address] PATHOLOGY AND GENOMIC MEDICINE * Urinalysis screen and microscopy, with reflex to culture (01/04/2018 4:52 PM) Specimen site Clean catch [facility] [place] [facility] OF [facility]OLOGY AND GENOMIC MEDICINE Color, UA Yellow [facility] [place] [facility] OF [facility]OLOGY AND GENOMIC MEDICINE Appearance, UA Slightly-Cloudy [facility] [place] [facility] OF [facility]OLOGY AND GENOMIC MEDICINE Specific gravity, UA 1.016 1.001 - 1.035 [facility] [place] [facility] OF PATHOLOGY AND GENOMIC MEDICINE pH, UA 6.0 5.0 - 8.5 [facility] [place] [facility] OF PATHOLOGY AND GENOMIC MEDICINE Protein, UA Negative Negative [facility] [place] [facility] OF PATHOLOGY AND GENOMIC MEDICINE Glucose, UA Negative Negative [facility] [place] [facility] OF PATHOLOGY AND GENOMIC MEDICINE Ketones, UA Negative Negative [facility] [place] [facility] OF PATHOLOGY AND GENOMIC MEDICINE Bilirubin, UA Negative Negative [facility] [place] [facility] OF PATHOLOGY AND GENOMIC MEDICINE Blood, UA Negative Negative [facility] [place] [facility] OF PATHOLOGY AND GENOMIC MEDICINE Nitrite, UA Negative Negative [facility] [place] [facility] OF PATHOLOGY AND GENOMIC MEDICINE Urobilinogen, UA 2.0 (A) <2.0 [facility] [place] [facility] OF [facility]OLOGY AND GENOMIC MEDICINE Leukocyte esterase, UA Negative Negative [facility] [place] [facility] OF PATHOLOGY AND GENOMIC MEDICINE Epithelial cells, UA Many /HPF [facility] [place] [facility]MENT OF PATHOLOGY AND GENOMIC MEDICINE WBC, UA 2 0 - 5 /HPF [facility] [place] [facility] OF PATHOLOGY AND GENOMIC MEDICINE RBC, UA 15 (H) 0 - 5 /HPF [facility] [place] [facility] OF PATHOLOGY AND GENOMIC MEDICINE Bacteria, UA Trace None seen [facility] [place] [facility] OF PATHOLOGY AND GENOMIC MEDICINE Yeast, UA None seen [facility] [place] [facility] OF PATHOLOGY AND GENOMIC MEDICINE Yeast with pseudohyphae, None seen [facility] [place] [facility] OF [facility] PATHOLOGY AND GENOMIC MEDICINE Calcium oxalate crystals, Few [facility] [place] [facility] OF [facility] PATHOLOGY AND GENOMIC MEDICINE Specimen Urine Performing Organization Address City/State/Zipcode Phone Number [facility]PART[facility] OF [facility] [place] [address] PATHOLOGY AND GENOMIC MEDICINE after 07/27/2017 Insurance Payer Benefit Subscriber ID Type Phone Address Plan / Group BCBS BCBS xxxxxxxxxxxx PPO CHOICE PPO/[place] [address]
== END 2018-07-28 17:15 | disposition home or self-care (01) ==
LOC: ER 10:25
DX: R33.9 Retention of urine, unspecified (principal); E87.6 Hypokalemia; K52.9 Noninfective gastroenteritis and colitis, unspecified
CPT/HCPCS: 36415; 51702; 80048; 81001; 84702; 85025; 85610; 85730; 87086; 99284; J2270; J2405; J2550; 51700

== ENCOUNTER 2018-07-30 16:00 | Emergency (ER) | payer BC ==
[~2018-07-30] VITALS: Ht 170.2 cm; Wt 81.2 kg
[~2018-07-30 16:00] MED LIST changes: +PROMETHAZINE12.5 M1 PO
[2018-07-30] MEDS ORDERED: SODIUM CHLORIDE 0.9% 1000ML 1,000 ML IV STA (16:18)
[2018-07-30] MEDS ORDERED: MORPHINE SULFATE INJ 4 MG/ML INJ IV STA (16:18)
[2018-07-30 17:39] LABS: BASOPHILS % 0.8 % (0.0-1.0); EOSINOPHILS # (AUTO) 0.2 (0.0-0.4); HEMATOCRIT 39.5 % (34.2-44.1); HEMOGLOBIN 13.4 g/dL (12.0-16.0); LYMPHOCYTES # (AUTO) 1.9 (1.0-3.2); LYMPHOCYTES % 38.1 % (18.0-39.1); MEAN CORPUSCULAR HEMOGLOBIN 36.2 pg (28-32); MEAN CORPUSCULAR HGB CONC 33.9 g/dL (31-35); MEAN CORPUSCULAR VOLUME 106.8 fL (81-99); MONOCYTES # (AUTO) 0.3 (0.2-0.8); MONOCYTES % 5.1 % (4.4-11.3); NEUTROPHILS # (AUTO) 2.6 (2.1-6.9); PLATELET COUNT 242 x10e3/uL (140-360); RED CELL DISTRIBUTION WIDTH 13.1 % (11.7-14.4)
[2018-07-30 17:56] LABS: INR 1.01; PROTHROMBIN TIME 12.5 seconds (11.9-14.5)
[2018-07-30 17:57] LABS: PARTIAL THROMBOPLASTIN TIME 25.8 seconds (23.8-35.5)
[2018-07-30 18:08] LABS: ALANINE AMINOTRANSFERASE 35 IU/L (0-55); ALBUMIN 3.7 g/dL (3.5-5.0); ALBUMIN/GLOBULIN RATIO 1.2 (0.8-2.0); ALKALINE PHOSPHATASE 77 IU/L (40-150); AMYLASE 93 U/L (25-125); ANION GAP 10.8 mmol/L (8-16); BLOOD UREA NITROGEN 10 mg/dL (7-26); BUN/CREATININE RATIO 9 (6-25); CALCIUM 9.1 mg/dL (8.4-10.2); CARBON DIOXIDE 24 mmol/L (22-29); CHLORIDE 110 mmol/L (98-107); CREATININE, SERUM 1.08 mg/dL (0.57-1.11); EST GLOMERULAR FILTRATION RATE > 60 ML/MIN (60-); GLUCOSE 89 mg/dL (74-118); LIPASE 29 U/L (8-78); POTASSIUM 3.8 mmol/L (3.5-5.1); SODIUM 141 mmol/L (136-145)
[2018-07-30 19:31] LABS: BILIRUBIN,URINE NEGATIVE (NEGATIVE); CLARITY,URINE SL CLOUDY (CLEAR); COLOR,URINE YELLOW (YELLOW); KETONES,URINE NEGATIVE (NEGATIVE); LEUKOCYTE ESTERASE ,URINE TRACE (NEGATIVE); NITRITE,URINE NEGATIVE (NEGATIVE); PROTEIN,URINE DIPSTICK 1+ (NEGATIVE); URINE UROBILINOGEN 0.2 mg/dL (0.2 - 1)
[2018-07-30 19:39] LABS: BACTERIA,URINE MODERATE /HPF; RBC,URINE >50 /HPF (0-5)
[2018-07-30] MEDS ORDERED: PROMETHAZINE HCL 25 MG TAB PO STA (21:31)
[2018-07-30] MEDS ORDERED: MORPHINE SULFATE 2 MG/ML SYR ONE (21:40)
[2018-07-30] MEDS ORDERED: CEFTRIAXONE SOD 1 GM VIAL IV ONE (22:07)
--- NOTE | 2018-07-30 22:26 | Diagnostic Imaging Report ---
EXAM: CT Abdomen and Pelvis WITHOUT contrast INDICATION: Renal stone. COMPARISON: None. TECHNIQUE: Abdomen and pelvis were scanned utilizing a multidetector helical scanner from the lung base to the pubic symphysis without administration of IV contrast. Absence of intravenous contrast decreases sensitivity for detection of focal lesions and vascular pathology. Coronal and sagittal reformations were obtained. Stone protocol is performed. IV CONTRAST: None. ORAL CONTRAST: Water RADIATION DOSE: Total DLP: 613.71 mGy*cm Estimated effective dose: (DLP x 0.015 x size factor) mSv COMPLICATIONS: None FINDINGS: LINES and TUBES: Johnson catheter in place decompressing the urinary bladder LOWER THORAX: Unremarkable HEPATOBILIARY: No focal hepatic lesions. No biliary ductal dilation. GALLBLADDER: There are cholecystectomy clips. SPLEEN: No splenomegaly. PANCREAS: No focal masses or ductal dilatation. ADRENALS: No adrenal nodules KIDNEYS/URETERS: No hydronephrosis. No cystic or solid mass lesions. No evidence of stones in the bilateral renal collecting systems or ureters. GI TRACT: No abnormal distention, wall thickening, or evidence of bowel obstruction. Postsurgical changes in the stomach compatible with bariatric surgery. There are post surgical changes of appendectomy. PELVIC ORGANS/BLADDER: 3 cm right ovarian cyst is simple. The ovaries are otherwise unremarkable LYMPH NODES: No lymphadenopathy. VESSELS: Unremarkable. PERITONEUM / RETROPERITONEUM: No free air or fluid. Innumerable calcifications are noted in the retroperitoneum in the distribution of the right gonadal vein compatible with phleboliths. BONES: Unremarkable. SOFT TISSUES: Unremarkable. IMPRESSION: 1. No evidence of nephrolithiasis or hydronephrosis. 2. Phleboliths in the distribution of the right gonadal vein. Signed by: Dr. Jarrett Nathan M.D. on 07/30/2018 10:22 PM
[2018-07-30] MEDS ORDERED: LORAZEPAM 1 MG TAB PO STA (22:42)
[2018-07-30 23:17] VITALS: BP 124/73
== END 2018-07-30 23:25 | disposition home or self-care (01) ==
LOC: ER 16:00
DX: M54.5 Low back pain (principal); R10.30 Lower abdominal pain, unspecified; N10 Acute pyelonephritis; N12 Tubulo-interstitial nephritis, not specified as acute or chronic; N39.0 Urinary tract infection, site not specified; F41.9 Anxiety disorder, unspecified; F32.9 Major depressive disorder, single episode, unspecified; Z85.72 Personal history of non-Hodgkin lymphomas
CPT/HCPCS: 36415; 74176; 80053; 81001; 82150; 83690; 85025; 85610; 85730; 87086; 93005; 99284; J0696; J2270; J7030

== ENCOUNTER 2018-08-08 17:12 | Emergency (ER) | payer BC ==
[~2018-08-08] VITALS: Ht 170.2 cm; Wt 81.2 kg
[2018-08-08 17:54] LABS: BASOPHILS % 0.7 % (0.0-1.0); EOSINOPHILS # (AUTO) 0.2 (0.0-0.4); EOSINOPHILS % 3.5 % (0.0-6.0); HEMATOCRIT 40.5 % (34.2-44.1); HEMOGLOBIN 13.7 g/dL (12.0-16.0); LYMPHOCYTES # (AUTO) 1.7 (1.0-3.2); LYMPHOCYTES % 31.3 % (18.0-39.1); MEAN CORPUSCULAR HEMOGLOBIN 36.1 pg (28-32); MEAN CORPUSCULAR HGB CONC 33.8 g/dL (31-35); MEAN CORPUSCULAR VOLUME 106.6 fL (81-99); MONOCYTES # (AUTO) 0.4 (0.2-0.8); MONOCYTES % 6.4 % (4.4-11.3); NEUTROPHILS # (AUTO) 3.2 (2.1-6.9); NEUTROPHILS % 57.9 % (38.7-80.0); PLATELET COUNT 262 x10e3/uL (140-360); RED CELL DISTRIBUTION WIDTH 13.2 % (11.7-14.4)
[2018-08-08 17:56] LABS: CLARITY,URINE HAZY (CLEAR); COLOR,URINE YELLOW (YELLOW)
[2018-08-08 17:57] LABS: BILIRUBIN,URINE NEGATIVE (NEGATIVE); KETONES,URINE NEGATIVE (NEGATIVE); LEUKOCYTE ESTERASE ,URINE 1+ (NEGATIVE); NITRITE,URINE POSITIVE (NEGATIVE); PROTEIN,URINE DIPSTICK 2+ (NEGATIVE); URINE UROBILINOGEN 0.2 mg/dL (0.2 - 1)
[2018-08-08] MEDS ORDERED: PYRIDIUM100 MG PO (18:13)
[2018-08-08 18:14] LABS: RBC,URINE >50 /HPF (0-5)
[2018-08-08 18:15] LABS: ANION GAP 14.2 mmol/L (8-16); BACTERIA,URINE MODERATE /HPF; BLOOD UREA NITROGEN 8 mg/dL (7-26); BUN/CREATININE RATIO 9 (6-25); CALCIUM 9.1 mg/dL (8.4-10.2); CALCIUM OXALATE CRYSTALS,UR FEW (FEW); CARBON DIOXIDE 21 mmol/L (22-29); CHLORIDE 110 mmol/L (98-107); CREATININE, SERUM 0.88 mg/dL (0.57-1.11); EPITHELIAL CELLS,URINE RARE /LPF; EST GLOMERULAR FILTRATION RATE > 60 ML/MIN (60-); GLUCOSE 89 mg/dL (74-118); POTASSIUM 4.2 mmol/L (3.5-5.1); SODIUM 141 mmol/L (136-145)
[2018-08-08] MEDS ORDERED: MORPHINE SULFATE 2 MG/ML SYR IV STA (18:34)
--- NOTE | 2018-08-08 19:14 | Diagnostic Imaging Report ---
EXAM: CT Abdomen and Pelvis WITHOUT contrast INDICATION: \S\Renal stone protocol \[id number] \[id number] COMPARISON: CT dated 07/30/2018 TECHNIQUE: Abdomen and pelvis were scanned utilizing a multidetector helical scanner from the lung base to the pubic symphysis without administration of IV contrast. Absence of intravenous contrast decreases sensitivity for detection of focal lesions and vascular pathology. Coronal and sagittal reformations were obtained. Routine protocol was performed. IV CONTRAST: None ORAL CONTRAST: Water COMPLICATIONS: None RADIATION DOSE: Total DLP: 567.75 mGy*cm Estimated effective dose: (DLP x 0.015 x size factor) mSv CTDIvol has been reviewed. It is below the limits set by the Radiation Protocol Committee (RPC). FINDINGS: LINES and TUBES: None. LOWER THORAX: Mild dependent atelectasis. Otherwise, unremarkable. HEPATOBILIARY: Unenhanced liver is unremarkable. No biliary ductal dilation. GALLBLADDER: Surgically absent. SPLEEN: No splenomegaly. PANCREAS: No focal masses or ductal dilatation. ADRENALS: No adrenal nodules KIDNEYS/URETERS: No hydronephrosis. No stones. GI TRACT: No abnormal distention, wall thickening, or evidence of bowel obstruction. Appendix is probably surgically absent. Again seen evidence of gastric surgery. PELVIC ORGANS/BLADDER: Bladder is under distended, limiting evaluation. There appears to be mild perivesical fat stranding. Unchanged calcifications along the course of right gonadal vein. LYMPH NODES: No lymphadenopathy. VESSELS: Unremarkable. PERITONEUM / RETROPERITONEUM: No free air or fluid. BONES: Unremarkable. SOFT TISSUES: Unremarkable. IMPRESSION: 1. No nephrolithiasis or evidence of obstructive urolithiasis. 2. Bladder is under distended, limiting evaluation. However, there appears to be perivesical fat stranding, raising the possibility of cystitis in the appropriate clinical setting. Signed by: Dr. Teto Gonzalez MD on 08/08/2018 7:09 PM
[2018-08-08] MEDS ORDERED: PROMETHAZINE HCL 25 MG TAB PO STA (21:00)
[2018-08-08] MEDS ORDERED: PROMETHAZINE HC25 M1 PO (21:02)
[2018-08-08] MEDS ORDERED: PROMETHAZINE HCL 25 MG TAB ONE (21:09)
[2018-08-08 21:12] VITALS: BP 102/56
== END 2018-08-08 21:14 | disposition home or self-care (01) ==
LOC: ER 17:12
DX: R30.0 Dysuria (principal); N30.01 Acute cystitis with hematuria
CPT/HCPCS: 36415; 74176; 80048; 81001; 83605; 84702; 85025; 87086; 87186; 99284; J2270

== ENCOUNTER → 2023-04-04 | Day surgery (SDC) | payer BC, OTHER ==
[~2023-04-04] MED LIST changes: +ACETAMINOPHEN 1000 MG/100 ML 100 ML IV ONE; +BELSOMRA15 MG PO; +BUSPIRONE HCL5 MG PO; +DEXAMETHASONE SOD PHOS 10 MG/1 ML VIAL ONE; +EPINEPHRINE HCL 1:1000 1ML 1 MG/ML AMP ONE; +ESTRACE0.5 MG PO; +FENTANYL CITRATE/PF 100MCG/2 ML INJ ONE; +GINGER250 MG PO; +GLYCOPYRROLATE INJ 0.2 MG/ML VIAL ONE; +LACTATED RINGER'S 1,000 ML ONE; +LIDOCAINE 1% W/EPINEPHRINE 20 ML VIAL ONE; +LIDOCAINE HCL 2% LOCAL INJ 5 ML SDV VIAL INJ ONE; +MAGNESIUM PO; +MIDAZOLAM HCL 2 MG/2 ML VIAL ONE; +NEOSTIGMINE 1 MG/ML 10ML VIAL ONE; +ONDANSETRON HCL INJ 2MG/ML 2ML 2 MG/ML VIAL ONE; +POVIDONE IODINE 0.05% 0.05 % ML PO ONE; +PROGESTERONE200 MG PO; +PROMETHAZINE HC25 M1 PO; +PROMETHAZINE HCL (IM) 25 MG/ML VIAL IM ONE; +PROPOFOL IV EMULSION 10 MG/ML 20 ML VIAL ONE; +PROVENTIL HFA6.7 GM INH; +PYRIDIUM100 MG PO; +ROCURONIUM BROMIDE 10 MG/ML 5ML VIAL IV ONE; +SEVOFLURANE INHAL SOLN 250 ML PEN BTL ONE; +TRELEGY ELLIPT1 EACH PO; +TUMERIC PO; +VENLAFAXINE HCL75 MG PO
[2023-04-04 12:26] VITALS: TEMP 97.1
[2023-04-04 13:19] VITALS: BP 126/74; PULSE 61; RESP 18; O2SAT 99
== END | disposition home or self-care (01) ==
LOC: OR 08:46
PROVIDERS: ATTEND Otolaryngology Otolaryngology/Facial Plastic Surgery
DX: J32.2 Chronic ethmoidal sinusitis (principal); J32.1 Chronic frontal sinusitis; J32.0 Chronic maxillary sinusitis; K21.9 Gastro-esophageal reflux disease without esophagitis; C85.90 Non-Hodgkin lymphoma, unspecified, unspecified site; F41.9 Anxiety disorder, unspecified; F32.A Depression, unspecified; F17.210 Nicotine dependence, cigarettes, uncomplicated; Z88.6 Allergy status to analgesic agent; Z79.899 Other long term (current) drug therapy
CPT/HCPCS: 31254; 31267; 31276; 88304; J0131; J0171; J1100; J2001; J2405; J2550; J2704; J2710; J7121; J2250